=== PATIENT | female | born 1990 | race Caucasian/White ===

== ENCOUNTER 2020-02-07 06:04 | Emergency (ER) | payer OTHER ==
[~2020-02-07] VITALS: Ht 180.3 cm; Wt 104.3 kg
[~2020-02-07 06:04] MED LIST: BACLOFEN 10MG T10 MG PO; BACTRIM DS TAB1 EACH PO; BIRTH CONRTOL PO; DEPO-PROVER150 MG/M1; IBUPROFEN 200200 M1 PO; KEFLEX500 MG PO; NABUMETONE 750750 M1 PO; ONDANSETRON HCL4 M2 PO; PERCOCET 5-3251 EACH PO; PERCOCET PO; PREDNISONE 20 M20 MG PO; TRAMADOL 50 MG50 MG PO; TRAMADOL HCL E100 M1 PO
[2020-02-07 06:31] LABS: ABSOLUTE NEUTROPHILS 4.7 thou/uL (1.4-8.2); BASOPHILS 0.6 % (0.0-2.0); EOSINOPHILS 0.7 % (0.0-3.0); HEMATOCRIT 38.4 % (37.0-47.0); HEMOGLOBIN 13.2 gm/dL (12.0-15.0); LYMPHOCYTES 37.3 % (24.0-44.0); MCH 32.8 pg (26.0-34.0); MCHC 34.4 g/dL (28.0-37.0); MCV 95.4 fL (80.0-100.0); MONOCYTES 7.9 % (1.0-8.0); PLATELET COUNT 276 thou/uL (150-400); POLYS 53.5 % (36.0-66.0); RBC 4.03 mil/uL (4.20-5.00); RDW 12.4 % (10.5-14.5); WBC 8.7 thou/uL (4.0-11.0)
[2020-02-07 06:38] LABS: CALCIUM 9.1 mg/dL (8.5-10.1); CREATININE 0.6 mg/dL (0.6-1.0); POTASSIUM 3.6 mmol/L (3.5-5.1)
[2020-02-07 08:35] VITALS: BP 122/85
--- NOTE | 2020-02-07 08:36 | EKG ---
[facility] [place] [address] ELECTROCARDIOGRAM REPORT Name: SADE CALVIN Room #: REG [facility]#: [id number] Admission: 02/07/20 Attend Phys: Discharge: Date of : 89 Report #: [id number] THIS REPORT FOR: cc: NO FAMILY PHYSICIAN or PCP NO FAMILY PHYSICIAN or PCP Tima Panda MD [facility] ~ THIS REPORT FOR: //name// [facility] ED Test Date: 2020-02-07 Test Time: 06:08:41 Pat Name: SADE CALVIN Department: Room: Gender: [employer]: [facility] : 1990 Requested By: Enrike Ortega Order Number: [id number] MD: Tima Panda Measurements Intervals [place] Rate: 92 P: 32 LA: 166 QRS: -5 QRSD: 102 T: 9 QT: 379 QTc: 469 Interpretive Statements Sinus rhythm Poor R wave progression nonspecific T abnormalities Compared to ECG 12/19/2012 15:20:16 No significant change was found Electronically Signed On 02-07-2020 8:35:52 CDT by Tima Panda [email or web address] <ELECTRONICALLY SIGNED> By: Tima Panda MD, FACC 02/07/20 [id number] Tima Panda MD, [facility] /EPI
== END 2020-02-07 08:35 | disposition home or self-care (01) ==
LOC: ER 06:04
PROVIDERS: Emergency Medicine
DX: R07.89 Other chest pain (principal); Z88.8 Allergy status to other drugs, medicaments and biological substances

== ENCOUNTER 2020-07-18 12:51 | Emergency (ER) | payer OTHER ==
[~2020-07-18] VITALS: Ht 180.3 cm; Wt 104.3 kg
[2020-07-18 15:00] VITALS: BP 138/76
== END 2020-07-18 15:38 | disposition home or self-care (01) ==
LOC: ER 12:51
DX: M25.531 Pain in right wrist (principal); Z79.899 Other long term (current) drug therapy

== ENCOUNTER → 2020-08-22 | Outpatient (CLI) | payer OTHER | LOC: MRI 09:47 | PROVIDERS: ATTEND Orthopaedic Surgery Hand Surgery | DX: M25.531 Pain in right wrist (principal); M79.641 Pain in right hand ==

== ENCOUNTER → 2020-08-23 | Outpatient (CLI) | payer OTHER | LOC: MRI 14:33 | PROVIDERS: ATTEND Orthopaedic Surgery Hand Surgery | DX: M25.531 Pain in right wrist (principal); M79.641 Pain in right hand ==